=== PATIENT | male | born 1980 | race Caucasian/White ===

== ENCOUNTER → 2024-08-01 | Emergency (ER) | payer MEDICAID ==
[~2024-08-01] VITALS: Ht 177.8 cm; Wt 95.0 kg
[~2024-08-01] MED LIST: KETOROLAC 30MG/ML VIAL IV STA; LORAZEPAM 2MG/ML INJ IM ONE
[2024-08-01 14:04] VITALS: O2SAT 99
[2024-08-01] MEDS: LORAZEPAM 2MG/ML UD SYRINGE IM SCH (14:48)
[2024-08-01] MEDS: MIDAZOLAM HCL 2 MG/2 ML VIAL IM ONE (15:39)
[2024-08-01 16:14] LABS: BASOPHILS % 0.4 % (0.0-2.0); EOSINOPHILS % 3.2 % (0.0-5.0); HEMATOCRIT. 44.7 % (42.0-52.0); HEMOGLOBIN. 14.9 g/dL (14.0-18.0); LYMPHOCYTES % 40.8 % (20.0-50.0); MEAN CORPUSCULAR HGB CONC 33.4 g/dL (31.0-37.0); MEAN CORPUSCULAR VOLUME 80.9 fL (80.0-94.0); MONOCYTES % 7.5 % (2.0-8.0); NEUTROPHILS % 48.1 % (40.0-76.0); PLATELET 138 x1000/uL (130-400); RED BLOOD CELL COUNT 5.53 mill/uL (4.7-6.1); RED CELL DISTRIBUTION WIDTH 13.8 % (11.6-14.6); WHITE BLOOD COUNT 5.5 x1000/uL (4.5-11.0)
[2024-08-01 16:19] LABS: CHLORIDE 106 mEq/L (98-107); POTASSIUM 3.5 mEq/L (3.5-5.1); SODIUM 139 mEq/L (136-145)
[2024-08-01 16:20] LABS: CALCIUM 8.9 mg/dL (8.7-10.4); CARBON DIOXIDE 25 mEq/L (21-32)
[2024-08-01 16:25] LABS: CREATININE 0.7 mg/dL (0.6-1.3); GLUCOSE 89 mg/dL (70-105); INR 1.1; PROTHROMBIN TIME 11.4 sec (9.6-11.0); UREA NITROGEN BLOOD 10 mg/dL (9-23)
[2024-08-01 16:26] LABS: ALANINE AMINOTRANSFERASE 54 IU/L (10-49)
[2024-08-01 16:27] LABS: ALBUMIN 4.3 g/dL (3.2-4.8); ASPARTATE AMINOTRANSFERASE 39 IU/L (<34); BILIRUBIN DIRECT 0.8 mg/dL (<=3.0); BILIRUBIN TOTAL 2.5 mg/dL (0.1-1.0); PROTEIN TOTAL 6.9 g/dL (6.0-8.3)
[2024-08-01 18:04] VITALS: TEMP 37; O2SAT 99
[2024-08-01 18:25] VITALS: BP 133/83; PULSE 78; RESP 15
[2024-08-01] MEDS: KETOROLAC 15MG/ML VIAL IV SCH (18:25)
== END ==
LOC: ER 14:19 → EDBEDREQSVC 18:47 → EDBEDREQ 18:47 → CANBEDREQ 19:02
DX: M48.56XA Collapsed vertebra, not elsewhere classified, lumbar region, initial encounter for fracture (principal); R51.9 Headache, unspecified; I10 Essential (primary) hypertension
CPT/HCPCS: 80076; 80048; 85025; 85610; 86850; 86900; 86901; 36415; 72131; 96372; 96374; 99285; J1885; J2060; J2250; Z7610 ×2